=== PATIENT | female | born 1995 | race Caucasian/White ===

== ENCOUNTER 2019-03-27 14:23 | Inpatient (IN) ==
[2019-03-27 15:38] LABS: Basophils # (auto) 0.02 K/uL (0-0.2); Basophils % (auto) 0.2 %; Eosinophils # (auto) 0.07 K/uL (0-0.5); Eosinophils % (auto) 0.7 %; Hemoglobin 13.8 g/dL (12.0-16.0); Immature Granulocytes # (auto) 0.02 K/uL (0.00-0.02); Immature Granulocytes % (auto) 0.2 %; Lymphocytes # (auto) 1.92 K/uL (1.2-3.4); Lymphocytes % (auto) 19.7 %; Mean Corpuscular Hemoglobin 31.3 pg (25-34); Mean Corpuscular Hgb Conc 35.4 g/dL (32-36); Mean Corpuscular Volume 88.4 fL (80-100); Mean Platelet Volume 9.3 fL (7.4-10.4); Monocytes # (auto) 0.58 K/uL (0.11-0.59); Neutrophils # (auto) 7.12 K/uL (1.4-6.5); Neutrophils % (auto) 73.2 %; Platelet Count 271 K/uL (130-400); RDW Coefficient of Variation 12.3 % (11.5-14.5); RDW Standard Deviation 39.4 fL (36.4-46.3); Red Blood Count 4.41 M/uL (4.2-5.4); White Blood Count 9.73 K/uL (4.8-10.8)
[2019-03-27 15:57] LABS: Albumin Level 4.4 gm/dl (3.4-5.0); BUN Creatinine Ratio 12.8 (10-20); Calcium 9.8 mg/dl (8.5-10.1); Creatinine Clr Calc Pharmacy 87.6 ml/min; Est GFR (African American) 83.8; Est GFR (Non-African American) 72.3; Potassium 3.7 mmol/L (3.5-5.1)
[2019-03-27 16:06] LABS: Acetaminophen < 2 ug/ml (10-30); Salicylate < 1.7 mg/dl (2.8-20)
[2019-03-27 16:07] LABS: Albumin Globulin Ratio 1.3 (0.9-2); Bilirubin,Total 1.1 mg/dl (0.2-1); Globulin 3.3 gm/dl (2.5-4.0); Thyroid Stimulating Hormone 1.43 uIu/ml (0.300-4.500); Total Protein 7.7 gm/dl (6.4-8.2)
[2019-03-27 16:38] LABS: Appearance Urine Clear (Clear); Bilirubin Urine Negative (Negative); Blood Urine Negative (Negative); Color Urine Yellow; Glucose Urine UA Negative (Negative); Ketones Urine Negative (Negative); Leukocyte Esterase Urine Negative (Negative); Nitrite Urine Negative (Negative); Protein Urine Negative (Negative); Urobilinogen Urine Negative (Negative); pH Urine 5.5 (4.5-7.5)
[2019-03-27 16:43] LABS: Specific Gravity Urine 1.024 (1.000-1.060)
[2019-03-27 16:44] LABS: Pregnancy Test, Urine Negative (Negative)
[2019-03-27 17:21] LABS: Amphetamines+Metham, Urine Neg (Neg); Barbiturates, Urine Neg (Neg); Benzodiazepine, Urine Neg (Neg); Cocaine, Urine Neg (Neg); MDMA (Ecstacy), Urine Pos (Neg); Methadone, Urine Neg (Neg); Opiate, Urine Neg (Neg); Phencyclidine, Urine Neg (Neg)
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
[2019-03-27] MEDS ORDERED: SODIUM CHLORIDE 0.65% NA SOLN 45 ML (OCEAN) PRN (18:18)
[2019-03-27] MEDS ORDERED: MAGNESIUM HYDROXIDE SUSP 30 ML UDC PO PRN (18:18)
[2019-03-27] MEDS ORDERED: BISMUTH SUBSALICYLATE PER ML OMNICELL CHARGE PO PRN (18:18)
[2019-03-27] MEDS ORDERED: ACETAMINOPHEN 325 MG TAB PO PRN (18:18)
[2019-03-27] MEDS ORDERED: ALUMINUM/MAGNESIUM SUSP 30 ML UDC PO PRN (18:18)
[2019-03-27] MEDS ORDERED: LORazepam 1 MG TAB PO PRN (18:18)
[2019-03-27] MEDS ORDERED: NICOTINE POLACRILEX 2 MG GUM MT PRN (18:29)
[2019-03-27] MEDS: lamoTRIgine 100 MG TAB PO SCH (21:01)
[2019-03-28] MEDS: lamoTRIgine 100 MG TAB PO SCH (08:05)
[2019-03-28] MEDS: NICOTINE 21 MG/24 HR TDSY TD SCH (08:09)
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
[2019-03-28] MEDS ORDERED: ARIPiprazole 10 MG TAB PO SCH (09:00)
[2019-03-28] MEDS ORDERED: LURASIDONE HCL 40 MG TAB PO SCH (18:00)
[2019-03-29 07:29] LABS: Glucose Fasting 97 mg/dl (70-99)
[2019-03-29 07:35] LABS: Chol HDL Ratio 3; Cholesterol 140 mg/dl (0-200); HDL Cholesterol 52 mg/dl; LDL Cholesterol Calculated 76 mg/dl; Triglycerides 59 mg/dl (0-150); VLDL Cholesterol 12 mg/dl
[2019-03-29] MEDS: NICOTINE 21 MG/24 HR TDSY TD SCH (09:20)
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
[2019-03-29] MEDS ORDERED: OLANZAPINE 2.5 MG TAB PO ONE (13:45)
[2019-03-29] MEDS ORDERED: FLUOXETINE HCL 10 MG CAP PO ONE (13:45)
[2019-03-30] MEDS: FLUOXETINE HCL 20 MG CAP PO SCH (08:19)
[2019-03-30] MEDS: OLANZapine 5 MG TABLET PO SCH (08:19)
[2019-03-30] MEDS: NICOTINE 21 MG/24 HR TDSY TD SCH (08:20)
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
[2019-03-31] MEDS: FLUOXETINE HCL 20 MG CAP PO SCH (08:40)
[2019-03-31] MEDS: OLANZapine 5 MG TABLET PO SCH (08:40)
[2019-03-31] MEDS: NICOTINE 21 MG/24 HR TDSY TD SCH (08:41)
--- NOTE | 2019-03-31 10:28 | Discharge Summary ---
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 Medical marijuana use Z79.899 Time Spent (min) 45
== END 2019-03-31 11:13 | disposition home or self-care (01) | DRG 885 ==
LOC: ED 14:23 → 3S 19:24